=== PATIENT | male | born 2000 | race Caucasian/White ===

== ENCOUNTER 2021-04-16 21:55 | Observation (INO) | payer OTHER ==
[~2021-04-16 21:55] MED LIST: Iopamidol-370 76% 500 ML 1 ML ONE
[2021-04-16] MEDS ORDERED: Morphine 4 MG/ML VIAL ONE (22:43)
[2021-04-16] MEDS ORDERED: Ondansetron PF 4 MG/2 ML Vial ONE (22:43)
[2021-04-16 22:53] LABS: #Basophils 0.1 thou/uL (0.0-0.2); #Eosinphils 0.1 thou/uL (0.0-0.7); #Lymphocytes 2.1 thou/uL (1.20-3.40); #Monocytes 0.8 thou/uL (0.11-0.59); #Neutrophils 9.3 thou/uL (1.40-6.50); %Basophils 0.5 % (0.0-1.0); %Eosinophils 0.7 % (0.0-10.0); %Lymphocytes 17.2 % (21.0-51.0); %Monocytes 6.4 % (0.0-10.0); %Neutrophils 75.2 % (42.0-75.0); Hemoglobin 15.7 g/dL (14.0-18.0); Mean Corpuscular HGB CONC 34.5 g/dL (32.0-36.0); Mean Corpuscular Volume 98.3 fL (78.0-98.0); Mean Platelet Volume 6.9 fL (7.4-10.4); Platelet Count 305 thou/uL (130-400); RBC Distribution Width 11.4 % (11.5-14.5); Red Blood Cell (RBC) Count 4.63 mill/uL (4.70-6.10); White Blood Cell (WBC) Count 12.4 thou/uL (4.8-10.8)
[2021-04-16 23:16] LABS: ALT (SGPT) 35 U/L (8-55); AST (SGOT) 27 U/L (5-34); Albumin 4.3 g/dL (3.5-5.0); Alkaline Phosphatase 96 U/L (40-110); Anion Gap 15 mmol/L (10-20); BUN (Urea Nitrogen) 16 mg/dL (8.9-20.6); Bilirubin, Total 0.3 mg/dL (0.2-1.2); Calc. Creatinine Clearance 0 mL/min (70-130); Calcium 9.1 mg/dL (7.8-10.44); Carbon Dioxide 23 mmol/L (22-29); Chloride 106 mmol/L (98-107); Globulin 3.1 g/dL (2.4-3.5); Glucose 108 mg/dL (70-105); Potassium 3.6 mmol/L (3.5-5.1); Protein, Total 7.4 g/dL (6.0-8.3); Sodium 140 mmol/L (136-145)
[2021-04-17] MEDS ORDERED: Dextrose 5% in Water 1,000 ML IV PRN (00:35)
[2021-04-17] MEDS ORDERED: Ondansetron ODT 4 MG TAB PO PRN (00:35)
[2021-04-17] MEDS ORDERED: Promethazine HCl 25 MG/ML VIAL IM PRN (00:35)
[2021-04-17] MEDS ORDERED: Ondansetron PF 4 MG/2 ML Vial IVP PRN (00:35)
[2021-04-17] MEDS ORDERED: Dextrose 50% Abboject 50 ML SYRINGE SLOW IVP PRN (00:35)
[2021-04-17] MEDS ORDERED: hydrALAZINE 20 MG/ML VIAL SLOW IVP PRN (00:35)
[2021-04-17] MEDS ORDERED: traMADol HCl 50 MG TAB PO PRN ×3 (00:40→07:40)
[2021-04-17] MEDS ORDERED: Acetaminophen/Codeine 30-300mg Tablet PO PRN (00:41)
[2021-04-17] MEDS ORDERED: Morphine 4 MG/ML VIAL ONE (01:02)
[2021-04-17] MEDS ORDERED: Sodium Chloride 0.9% 1,000 ML IV SCH (03:00)
[2021-04-17] MEDS: Cyclobenzaprine 10 MG TAB PO PRN ×2 (03:01→14:04)
[2021-04-17 06:10] VITALS: BMI 26.4
[2021-04-17] MEDS: Ibuprofen 200 MG TAB PO SCH ×2 (06:11→13:55)
[2021-04-17] MEDS: Acetaminophen 325 MG TAB PO SCH ×2 (06:12→11:07)
[2021-04-17 07:03] LABS: SARS-CoV-2 NAA Rapid Test Not Detected (NotDetected)
[2021-04-17] MEDS: traMADol HCl 50 MG TAB PO SCH ×2 (08:54→13:54)
[2021-04-17] MEDS ORDERED: Famotidine 20 MG TAB PO SCH (09:00)
[2021-04-17] MEDS ORDERED: Gabapentin 100 MG CAP PO SCH ×2 (10:45→15:00)
[2021-04-17] MEDS ORDERED: FLU VACC QS2021-22(6MOS UP)/PF 60 MCG/0.5 ML SYRINGE IM ONE (12:00)
[2021-04-17 15:27] VITALS: BP 123/71
[2021-04-17 17:41] VITALS: TEMP 97.6
== END 2021-04-17 18:02 | disposition home or self-care (01) ==
LOC: ERS 21:55 → SJJU 04-17 00:35
PROVIDERS: ADMIT Specialist; ATTEND Specialist
DX: S27.0XXA Traumatic pneumothorax, initial encounter (principal); S22.31XA Fracture of one rib, right side, initial encounter for closed fracture; S22.21XA Fracture of manubrium, initial encounter for closed fracture; S06.0X0A Concussion without loss of consciousness, initial encounter; G89.11 Acute pain due to trauma; Z20.822 Contact with and (suspected) exposure to COVID-19; V49.40XA Driver injured in collision with unspecified motor vehicles in traffic accident, initial encounter
CPT/HCPCS: 36415; 70450; 71045; 71260; 72125; 74177; 80053; 85025; 94640; 96374; 96375; 96376; G0378; G0390; J2270; J2405; J7050; J7620; Q9967; U0002